=== PATIENT | female | born 1985 | race Asian ===

== ENCOUNTER 2017-02-15 11:11 | Emergency (ER) | payer MEDICAID ==
[~2017-02-15] VITALS: Ht 149.9 cm; Wt 76.0 kg
[~2017-02-15 11:11] MED LIST: ALBU8.5H5 INH
[2017-02-15 11:18] VITALS: BP 143/88
[2017-02-15] MEDS ORDERED: HYDROcodone/APAP 5/325 TABLET ONE (11:27)
[2017-02-15] MEDS ORDERED: HYDROcodone/APAP 5/325 TABLET PO ONE (11:30)
== END 2017-02-15 11:48 | disposition home or self-care (01) ==
LOC: ED 11:40
DX: S02.5XXA Fracture of tooth (traumatic), initial encounter for closed fracture (principal); K02.9 Dental caries, unspecified; J45.909 Unspecified asthma, uncomplicated; W19.XXXA Unspecified fall, initial encounter; Y93.89 Activity, other specified; Y92.89 Other specified places as the place of occurrence of the external cause; Y99.8 Other external cause status; Z88.8 Allergy status to other drugs, medicaments and biological substances
CPT/HCPCS: 99283

== ENCOUNTER 2017-03-06 18:25 | Emergency (ER) | payer MEDICAID ==
[~2017-03-06] VITALS: Ht 149.9 cm; Wt 74.6 kg
[2017-03-06 18:28] VITALS: BP 118/76
[2017-03-06] MEDS ORDERED: ALBUTEROL SULFATE 2.5 MG/3 ML NPPB ONE (19:00)
[2017-03-06] MEDS ORDERED: ALBUTEROL SULFATE 2.5 MG/3 ML ONE (19:26)
[2017-03-06] MEDS ORDERED: ALBUTEROL/IPRATROPIUM 2.5MG/0.5MG, 3 ML ONE (19:26)
== END 2017-03-06 20:18 | disposition home or self-care (01) ==
LOC: ED 20:12
DX: J20.8 Acute bronchitis due to other specified organisms (principal); B97.89 Other viral agents as the cause of diseases classified elsewhere
CPT/HCPCS: 71020; 99284; J7512; J7613

== ENCOUNTER 2017-07-11 12:15 | Emergency (ER) | payer MEDICAID ==
[~2017-07-11] VITALS: Ht 149.9 cm; Wt 73.4 kg
[2017-07-11 12:19] VITALS: BP 110/69
== END 2017-07-11 12:47 | disposition home or self-care (01) ==
LOC: ED 12:40
DX: K08.89 Other specified disorders of teeth and supporting structures (principal); J45.909 Unspecified asthma, uncomplicated; Z91.041 Radiographic dye allergy status
CPT/HCPCS: 99283

== ENCOUNTER 2017-12-21 12:16 | Emergency (ER) | payer MEDICAID ==
[~2017-12-21] VITALS: Ht 149.9 cm; Wt 73.0 kg
[2017-12-21 12:28] VITALS: BP 130/77
[2017-12-21] MEDS ORDERED: KETOROLAC 30 MG/1 ML ONE (12:56)
[2017-12-21] MEDS ORDERED: KETOROLAC 30 MG/1 ML IM ONE (13:00)
== END 2017-12-21 13:04 | disposition home or self-care (01) ==
LOC: ED 12:58
DX: K08.89 Other specified disorders of teeth and supporting structures (principal); J45.909 Unspecified asthma, uncomplicated
CPT/HCPCS: 96372; 99283; J1885

== ENCOUNTER 2019-01-01 18:14 | Emergency (ER) | payer MEDICAID ==
[~2019-01-01] VITALS: Ht 149.9 cm; Wt 67.2 kg
[2019-01-01 18:43] VITALS: BP 130/60
[2019-01-01] MEDS ORDERED: HYDROcodone/APAP 5/325 TABLET ONE (19:50)
[2019-01-01] MEDS ORDERED: HYDROcodone/APAP 5/325 TABLET PO ONE (20:00)
== END 2019-01-01 20:29 | disposition home or self-care (01) ==
LOC: ED 20:02
DX: K04.7 Periapical abscess without sinus (principal); J45.909 Unspecified asthma, uncomplicated
CPT/HCPCS: 99283

== ENCOUNTER 2019-05-11 14:00 | Emergency (ER) | payer MEDICAID ==
[~2019-05-11] VITALS: Ht 149.9 cm; Wt 70.3 kg
[2019-05-11 14:25] VITALS: BP 126/83
[2019-05-11] MEDS ORDERED: KETOROLAC 30 MG/1 ML IM ONE (15:00)
--- NOTE | 2019-05-11 15:12 | NUR ---
PT ARRIVES TO ED WITH C.O OF RIGHT FLANK PAIN X DAYS WITH INCREASED FREQUENCY IN URINATION BUT NO PAINFUL URINATION. PT ALSO REPORTS NO HX OF KIDNEY STONES. PT IN MODERATE DISCOMFORT. VSS. PT RESTING IN BED. UA SENT TO LAB.
[2019-05-11 15:19] LABS: HCG UR SG 1.013 (1.003-1.030); MICROSCOPIC NOT IND
[2019-05-11] MEDS ORDERED: KETOROLAC 30 MG/1 ML ONE (15:22)
[2019-05-11 15:24] LABS: CULTURE INDICATED? NO
--- NOTE | 2019-05-11 15:28 | NUR ---
PT MEDICATED PER EMAR.
--- NOTE | 2019-05-11 16:18 | NUR ---
Patient/Caregiver given discharge instructions and they have confirmed that they understand the instructions. Patient ambulatory with steady gait.
== END 2019-05-11 16:20 | disposition home or self-care (01) ==
LOC: ED 16:08
DX: M54.5 Low back pain (principal); J45.909 Unspecified asthma, uncomplicated
CPT/HCPCS: 81003; 81025; 96372; 99283; J1885